=== PATIENT | male | born 1930 | race Caucasian/White ===

== ENCOUNTER 2017-02-03 00:43 | Inpatient (IN) | payer MEDICARE, OTHER ==
[~2017-02-03] VITALS: Ht 167.6 cm; Wt 56.3 kg
--- NOTE | ~2017-02-03 | ECH ---
Transthoracic Echocardiography Report (TTE) Demographics Patient Name SEVERIANO LAFLEUR Date of Study 02/06/2017 Patient Number [id number] Visit Number [id number] Date of 1930 Room Number 401 Accession Number [id number] Gender Male Age 86 year(s) Referring Dejon NOVOA Chemical Dependency Attendant Sheila Koehler Physician Woody Lindsey MD Physician Interpreting Dejon NOVOA Hand Binder Stripper Physician Woody Supervising Ordering Physician Dejon NOVOA MD/RANDEE Mckay Nurse Stress Process Checker Conclusions Contractility Score Summary Normal Left Ventricular contractility was noted. Summary Technically good exam. The estimated left ventricular ejection fraction is 50%. Mild concentric left ventricular hypertrophy. Diastolic assessment reveals Grade I diastolic dysfunction. Patient has a known VSD. There appears to be a moderate perimembranous ventricular septal defect. Moderately dilated right ventricle with normal function. The left atrium is severely dilated by LA volume index measurement. The right atrium is severely dilated. The interatrial septum appears aneurysmal. Patient has known PFO. There is evidence of a patent foramen ovale by color Doppler. There is mild aortic stenosis by the Continuity Equation. The peak velocity is 2.7 m/s, the mean gradient is 18 mmHg, and the valve area based on the continuity equation is 0.8 cm2, stroke volume index is 31 ml/m2. Peak velocity obtained in apical view. There is trivial aortic regurgitation by color Doppler. Moderate tricuspid regurgitation by color Doppler. There is moderate pulmonary hypertension. The pulmonary pressure (RVSP) is 53 mmHg. Recommendation The patient will be given the results of this study by the physician who ordered the exam. Procedure Type of Study TTE procedure:Echo Complete SF. Procedure Date Date: 02/06/2017 Start: 03:24 PM Technical Quality: Good visualization Indications:Pre surgical clearance, Shortness of breath and Diabetes. Additional Indications:Patient has known VSD, PFO Appropriate Use Criteria: 9 Height: 66 inches Weight: 119 pounds BSA: 1.6 m Rhythm: Within normal limits HR: 61 bpm BP: 112/66 mmHg M-Mode/2D Measurements LV Diastolic Dimension: 3.99 cm LV Systolic Dimension: 3.15 cm LV Septum Diastolic: 1.07 cm LV PW Diastolic: 1.08 cm AO Root Dimension: 2.69 cm Cardiac Output: 3.02 l/min LA Dimension: 4.27 cm Cardiac Index: 1.89 l/min*m RV Diastolic Dimension: 4.11 cm LA volume index: 59 ml/m LVOT: 2.06 cm LVOT VTI: 14.88 cm RV Base: 4.5 cm LV Stroke volume: 49.57 ml RV Mid: 3.7 cm LV Stroke volume index: 30.98 ml/m TAPSE: 2.8 cm TDI-S': 14 cm/s Doppler Measurements AV Peak Velocity: 2.7 m/s MV Peak E-Wave: 1.06 m/s AV Peak Gradient: 29.16 mmHg MV Peak A-Wave: 1.59 m/s AV Mean Gradient: 17.52 mmHg MV E/A Ratio: 0.66 LVOT Peak Velocity: 0.61 m/s MV P1/2t: 81.7 msec AV Area (Continuity):0.82 cm AV P1/2t: 430.2 msec TR Velocity:3.54 m/s MV Deceleration Time: 269.4 msec TR Gradient:50.13 mmHg MV Area (PHT): 2.69 cm Estimated RAP:3 mmHg PV Peak Velocity: 0.85 m/s Estimated RVSP: 53 mmHg PV Peak Gradient: 2.86 mmHg E' Septal Velocity: 0.05 m/s Estimated PASP: 53.13 mmHg E' Lateral Velocity: 0.05 m/s A' Septal Velocity: 0.11 m/s A' Lateral Velocity: 0.16 m/s RA Area: 27.23 cm Findings Left Ventricle The left ventricle is normal in size . Mild concentric left ventricular hypertrophy. Diastolic assessment reveals Grade I diastolic dysfunction. Patient has a known VSD. There appears to be a moderate perimembranous ventricular septal defect. Right Ventricle Moderately dilated right ventricle with normal function. Left Atrium The left atrium is severely dilated by LA volume index measurement. The interatrial septum appears aneurysmal. Patient has known PFO. There is evidence of a patent foramen ovale by color Doppler. Right Atrium The right atrium is severely dilated. Mitral Valve Moderate mitral annular calcification. Mild mitral regurgitation by color Doppler. Aortic Valve There is mild aortic stenosis by the Continuity Equation. The peak velocity is 2.7 m/s, the mean gradient is 18 mmHg, and the valve area based on the continuity equation is 0.8 cm2, stroke volume index is 31 ml/m2. Peak velocity obtained in apical view. There is trivial aortic regurgitation by color Doppler. Tricuspid Valve Normal tricuspid valve structure and function. Moderate tricuspid regurgitation by color Doppler. There is moderate pulmonary hypertension. The pulmonary pressure (RVSP) is 53 mmHg. Pulmonic Valve Normal pulmonic valve structure and function. Pericardial Effusion No evidence of pericardial effusion. Miscellaneous Visualized portions of the aortic root and ascending aorta appear normal in size. Pleural Effusion No evidence of pleural effusion. Contractility Score LV regional wall motion:(0-Non visualized 1-Normal 2-Hypokinesis 3-Akinesis 4-Dyskinesis 5-Aneurysm) Signature
--- NOTE | 2017-02-03 05:04 | ER ---
ADMIT: 02/03/2017 RM/LOC: [facility] MR#: [id number] [address] [address] SEVERIANO LAFLEUR [facility] [place] [address] Emergency Room Report SEX: M AGE: 86 : 1930 DATE: 02/03/2017 CHIEF COMPLAINT: Fall. HISTORY OF PRESENT ILLNESS: The patient is an 86-year-old, new resident of [facility] past 3 weeks from the [facility] transferred down to be closer to family. Carries diagnosis of frequent falls due to spinal stenosis and lumbar myelopathy. Has been evaluated by Spine surgeon and nothing could be done. The patient had another fall tonight resulting no significant injury, however, at [facility], there has been too many falls for the past 3 weeks and will not take him back. PAST MEDICAL HISTORY: ALLERGIES: SULFA, PENICILLIN, AND MUSHROOMS. 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 OPERATIONS: Appendectomy, bilateral hernia repair, bilateral cataract with intraocular lens implant, T and A. SOCIAL HISTORY: . Retired. Nonsmoker. Nondrinker. No illicit drugs. FAMILY HISTORY: Negative per chart review. REVIEW OF SYSTEMS: A 12-point review of systems negative for all other systems, illnesses, or operations except as outlined above. PHYSICAL EXAMINATION: VITAL SIGNS: Temp 96.8, respirations 16, pulse 88, BP 121/67, and SaO2 of 95%. Weight 54 kilos. GENERAL: Nontoxic, non-diaphoretic without jaundice or icterus. HEENT: Normocephalic. No evidence of epistaxis, rhinorrhea, or otorrhea. NECK: Supple without lymphadenopathy or thyromegaly. CHEST: Clear. Breath sounds equal without rales, rhonchi, or wheeze. HEART: Regular rate and rhythm without murmur, gallop, or edema. ABDOMEN: Soft, nontender, nondistended without mass or megaly. Bowel sounds hypoactive. EXTREMITIES: No evidence of Homans sign, synovitis, or dermatitis though weak. NEURO: EOMI. PERRL. Weak lower extremities. Gait not assessed. MEDICAL DECISION MAKING: CT head negative. Chest x-ray, no acute findings. EKG showed sinus rhythm with PVCs, right bundle, and left anterior hemiblock. ADMIT: 02/03/2017 RM/LOC: [facility] MR#: [id number] [address] [address] [place] [address] Emergency Room Report SEX: M AGE: 86 : 1930 LABORATORY DATA: Hemoglobin 11.9. CRP 1.05. Glucose 135, sodium 130. INR 1.0. Troponin 0.020. UA pending. Discussed findings with Dr. Escalera, who agreed and gave orders to nursing staff. DIAGNOSIS: Frequent falls due to spinal stenosis and associated lumbar myelopathy. RECOMMENDATION: Admit inpatient Med/Surg for Dr. Ibarra. ADMISSION/DISCHARGE CONDITION: Stable. Saul Dumont MD/ modl JOB #: [id number] CC: Saul Dumont MD, Attending Physician Max Ibarra MD, Family Physician Max Ibarra MD
--- NOTE | 2017-02-04 00:22 | NUR ---
UPIN 2ND ASESSMENT NURSE NOTICED PT WAS DIFICULT TO AROUSE, DIAPHORETIC, AND HOT TO TOUGH, PRN BLLOD GLUCOSE WAS TAKEN ANS RESULTED @ 68, HYPOGLYCEMIC PROTOCOL INITIATED
--- NOTE | 2017-02-06 07:19 | CO ---
ADMIT: 02/03/2017 RM/LOC: 401 [facility] MR#: [id number] [address] [address] [place] [address] Consultation SEX: M AGE: 86 : 1930 DATE OF CONSULTATION: 02/05/2017 ATTENDING PHYSICIAN: Pavan Ibarra CONSULTING PHYSICIAN: Juan Gay MD REASON FOR CONSULTATION: Weakness and falls. HISTORY OF PRESENT ILLNESS: Mr. Lafleur is a very pleasant 86-year-old gentleman, who hails from [facility] in [facility], near [place] old stom[place], who has had weakness and difficulty walking. Apparently, he has moved to try to be closer to family, although was little confusing when I was discussing with him his living situation, I think this gotten progressively worse. He had apparently had an MRI up in [place] with [place] folks and he says something about possible aortic aneurysm or other such blood vessel dilatation, and he did not seem certain on what the diagnosis was. He said there is also a talk about doing a surgery on his back. PAST MEDICAL HISTORY: 1. Diabetes mellitus type 2. 2. Stroke. 3. BPH. 4. Depression. 5. Anxiety. PAST SURGICAL HISTORY: 1. Appendectomy. 2. Herniorrhaphy. 3. Cataracts. 4. Adenoidectomy. 5. Tonsillectomy. SOCIAL HISTORY: Occasionally drinks alcohol. Prior smoker. Resides in assisted living. FAMILY HISTORY: No history of neurosurgical disease. PHYSICAL EXAMINATION: VITAL SIGNS: 97.2 degrees, 64 beats, 22 respirations, 112/62, 95% on room air. GENERAL: He is an otherwise healthy, age-appropriate appearing 86-year-old gentleman. HEENT: Atraumatic head. No scleral icterus. Clear oropharynx. CHEST: Normal respiratory excursion. ABDOMEN: Nontender. EXTREMITIES: Small wound on the right aspect of his ankle and some skin thinning and mild atrophy. NEUROLOGICAL EXAMINATION: MENTAL STATUS: He is awake, alert, and seems to be ADMIT: 02/03/2017 RM/LOC: 401 [facility] MR#: [id number] [address] [address] SEVERIANO LAFLEUR [place] [address] Consultation SEX: M AGE: 86 : 1930 oriented but during conversation, he also appears to be somewhat disoriented at times. After lengthy discussion, he is certainly well-versed on [employer] history. CRANIAL NERVES: Cranial nerves II through XII are individually tested and found to be intact without deficit. MOTOR: Motor exam reveals 5/5 strength in the upper extremities, 4/5 in the bilateral lower extremities with a little bit of difficulty in mobilization. DEEP TENDON REFLEXES: Are 1/4 in lower extremities, 2/4 in the upper extremities. CEREBELLAR: No cerebellar signs. GAIT: Not tested. SENSATION: Appears to be intact to light touch. ASSESSMENT AND PLAN: Mr. Lafleur is a very pleasant 86-year-old gentleman who certainly by the reports sounds like he has severe stenosis of the lumbar spine that sounds like it is going to be operative, although I have not seen the imaging and I would not want to base my entire consideration on the report alone. I am going to need to see this imaging, hopefully they can either overnight a disk or electronically push through the imaging to better evaluate. We will plan to check in with him tomorrow. Also, I will order flexion extension films. I am uncertain as to whether he has become acutely worse; if that is the case, then a new MRI would certainly be an order but based on what I have seen, it sounds like this is subacute chronic process that is going on. Juan Gay MD/ nabila JOB #: [id number] CC: Pavan Ibarra, Attending Physician Max Ibarra, Family Physician
--- NOTE | 2017-02-06 08:09 | HP ---
ADMIT: 02/03/2017 RM/LOC: 401 [facility] MR#: [id number] 26[address] [facility] [address] [place] [phone] NATHANSEVERIANO [place] [facility] [address] History and Physical SEX: M AGE: 86 : 1930 DATE OF SERVICE: CHIEF COMPLAINT: Weakness and falls. HISTORY OF PRESENT ILLNESS: The patient is a pleasant 86-year-old male, who resides at an assisted living facility, [facility]. He just recently moved there over the past month or so to be closer to family. However, over the past 2 weeks, he has had progressive weakness and he has also had worsening numbness and tingling. He also has had multiple falls over the past few weeks. He says that prior to two weeks ago, he was able to use his walker. Now it is even difficult to just use his wheelchair. He also has pain across the lower back and has numbness and tingling in his lower extremities. He states he has spinal stenosis and has been battling with that for many years. Due to increasing falls, assisted living will not take him back as they do not feel he is suitable for assisted living at this time. Talking to him this morning, feels overall okay. He denies any chest pain, shortness of breath, or coughing. Denies any heart palpitations. Denies nausea, vomiting, or diarrhea. He does have urinary frequency, but states that is because of his BPH. He does have this numbness and tingling in his lower extremities bilaterally. PAST MEDICAL HISTORY: Significant for spinal stenosis, diabetes type 2, history of CVA without residual effects, BPH, depression, and anxiety. SOCIAL HISTORY: Former smoker. Drinks alcohol minimally. No drugs. Again, resides in assisted living. Just, recently moved here from the [facility]. FAMILY HISTORY: Noncontributory. PAST SURGICAL HISTORY: Include appendectomy, bilateral hernia repair, cataracts, tonsillectomy, and adenoidectomy. LAB WORK: In the ER showed a slightly low sodium at 130, potassium is normal at 3.8, chloride 96, CO2 is 26, BUN is 13, creatinine was 0.7, slightly elevated glucose of 135, and calcium is 9, alkaline phosphatase is elevated at 253, albumin is low at 2.9, total protein of 5.8, CRP was slightly elevated at 1.05, troponin was normal. CK was normal. MB was slightly elevated at 4.3, lactic acid is normal at 1.3. CBC, white blood cell count was 7.8, hemoglobin was 11.9, and platelets of 278. UA was normal. Chest x-ray showed some cardiomegaly. Also mentions a right lower lobe nodule, although we do not have any studies to compare this to, whether this is a new nodule, if it has changed. Head CT shows mild small vessel changes or ischemic changes. Otherwise, no acute abnormalities like bleeding or mass. PHYSICAL EXAMINATION: VITAL SIGNS: At the time of admission, temperature 97.1, 76 for pulse, 16 respiratory rate, blood pressure is 120/76, and he is a 100% on room air. GENERAL: No acute distress. He is alert and oriented x3. Very pleasant. ADMIT: 02/03/2017 RM/LOC: 401 [facility] MR#: [id number] [facility] [address] [address] [place] [id number] History and Physical SEX: M AGE: 86 : 1930 HEENT: Normocephalic and atraumatic. Extraocular muscles are intact. Moist mucous membranes. NECK: Supple and nontender. HEART: Regular rate and rhythm. He does have 3/6 holosystolic murmur, which the patient states he has had for as long as he can remember. LUNGS: Clear to auscultation bilaterally. No wheezing. ABDOMEN: Soft, positive bowel sounds, nontender. EXTREMITIES: Show no signs of edema, 2+ pulses. He does have hammertoes bilaterally and he does have a small scab on his right big toe. It does not appear to be infected. NEURO: Cranial nerves II through XII are grossly intact. He does have some decreased sensation in his feet. ASSESSMENT AND PLAN: 1. Spinal stenosis. 2. Weakness. 3. Neuropathy. 4. Deconditioning. 5. Diabetes. 6. Hyponatremia. 7. Depression and anxiety. 8. History of CVA (cerebrovascular accident). 9. Benign prostatic hyperplasia. We will get the patient admitted to the hospital. We will continue his home medications. We will start him on gabapentin for this numbness and tingling and low back pain. We will get physical therapy and occupational therapy to see him to reassess his functional level is as far as placement. Also suggest to get try find some records of the patient to see if he does have a former chest x-ray to compare the lung nodule. At this time, we will keep working on strengthening and will get repeat labs in the morning. Elisabet Alston MD Resident / Yordy Escalera MD / nabila JOB #: [id number] CC: Max Ibarra, Attending Physician Max Ibarra, Family Physician
[2017-02-08] MEDS ORDERED: METOPROLOL TART25 MG PO (13:14)
[2017-02-08] MEDS ORDERED: MIRALAX PACKET17 GM PO (13:15)
--- NOTE | 2017-02-18 07:03 | CO ---
ADMIT: 02/03/2017 RM/LOC: 401 [facility] MR#: [id number] [address] [address] [place] [address] Consultation SEX: M AGE: 86 : 1930 DATE OF CONSULTATION: 02/06/2017 ATTENDING PHYSICIAN: Pavan Ibarra CONSULTING PHYSICIAN: Woody Ashford MD REASON FOR CONSULT: Preop for back surgery and chest pain. HISTORY OF PRESENT ILLNESS: The patient is seen in PCU today for severe back pain caused by spinal stenosis and lumbar myelopathy causing severe leg weakness and multiple falls. The surgeon would like to perform surgery for this once, but the patient's heart health needs to be looked into first. The patient does have a history of chest pain that he describes as sharp. He says the pain is usually mild and it occurs with exertion and it only last a couple of seconds. He denies associated symptoms of shortness of breath, nausea, lightheadedness, dizziness, tingling, or numbness in the extremities or diaphoresis. He does report shortness of breath with activity. He says the chest pain has been going on for years, but none of it has occurred recently. Prior cardiac history is negative for heart attacks, heart caths, and any stress test. He did have echocardiogram performed in January 2015 revealing an ejection fraction of 50%, a PFO and a ventricular septal defect, which were already known. He also had a carotid Doppler performed in January 2015 revealing mild to moderate left and right carotid artery atherosclerosis of less than 50%. Prior heart monitors do reveal the patient has episodes of unsustained ventricular tachycardia. He says he does feel palpitations and his heart pounding at times. He denies shortness of breath, fainting, lightheadedness, or dizziness at this time. The patient's cardiovascular risk factors include history of high blood pressure. Negative for smoking or tobacco use, high cholesterol or diabetes. PAST MEDICAL HISTORY: Significant illnesses: Diabetes type 2, history of stroke, BPH, spinal stenosis, depression, and anxiety. PREVIOUS SURGERIES: Appendectomy, bilateral hernia repair, cataracts bilaterally, tonsillectomy, and adenoidectomy. HOME MEDICATIONS: 1. Alprazolam 0.25 mg p.o. at bedtime. 2. Betamethasone dipropionate 0.05% cream. 3. Aspirin 81 mg p.o. daily. 4. Dipyridamole 100 mg p.o. 5. Lexapro 10 mg p.o. 6. Terazosin HCl 5 mg p.o. at bedtime. 7. AREDS one tab p.o. b.i.d. 8. MiraLAX powder 17 g p.o. daily. 9. Paxil 10 mg p.o. daily. 10.BuSpar 10 mg p.o. b.i.d. 11.Hydrocodone 5-325 mg p.o. every 4 hours p.r.n. 12.Milk of mag p.o. p.r.n. ADMIT: 02/03/2017 RM/LOC: 401 [facility] MR#: [id number] [address] [address] [place] [address] Consultation SEX: M AGE: 86 : 1930 13.Acetaminophen 325 mg 1-2 tabs p.o. p.r.n. ALLERGIES: SULFA, PENICILLIN, AND MUSHROOMS. SOCIAL HISTORY: No prior smoking, alcohol use, drug use, or abuse. Occupation, retired. Marital status, . REVIEW OF SYSTEMS: GENERAL: Denies fatigue, fever, chills, sweats, rash, or weight loss. EYES: Negative for blurry vision, glaucoma, partial or total loss of vision. Positive for cataracts. ENT: Denies hearing loss or problems with nose, mouth or throat. PULMONARY: Denies cough, sputum production, asthma, emphysema or bronchitis. Denies snoring loudly, wakefulness at night, or fatigue upon awakening. GASTROINTESTINAL: Denies heartburn or difficulty swallowing. No change in bowel habits. Denies dark or bloody stools. No history of ulcers, hiatal hernia, or gallbladder or liver disease. GENITOURINARY: Positive for BPH and troubles in urination. Negative for UTIs, blood in urine, kidney stones. MUSCULOSKELETAL: Positive for spinal stenosis and myelopathy. ENDOCRINE: Denies history of thyroid dysfunction or diabetes. HEMATOLOGIC: Denies history of anemia, easy bruising, or cancer. NEUROLOGIC: Positive for stroke, numbness, and tingling in the legs. Negative for seizure disorder. PSYCHIATRIC: Positive for depression and anxiety. PHYSICAL EXAMINATION: VITAL SIGNS: Temperature afebrile, pulse 85, respiratory rate 18, blood pressure 132/65, O2 saturation 91% on room air. GENERAL: No acute distress. Alert and oriented but difficult historian. HEENT: Normocephalic and atraumatic. NECK: JVD normal, no bruits. HEART: Irregular, 4/6 blowing holosystolic murmur. LUNGS: Clear to auscultation. ABDOMEN: Soft and nontender. EXTREMITIES: Absent edema. NEUROLOGIC: Cranial nerves II through XII intact. MUSCULOSKELETAL: Gait not assessed. LABORATORY DATA: Sodium 139, potassium 3.8, chloride 104, CO2 of 27, BUN 14, creatinine 0.8, and glucose 121. White blood cell count 8.4, red blood cell count 11.7, CK-MB 4.3, troponin 0.020. Chest x-ray, cardiomegaly, nodule ADMIT: 02/03/2017 RM/LOC: 401 [facility] MR#: [id number] [address] [address] [place] [address] Consultation SEX: M AGE: 86 : 1930 right lower lobe. Planning on doing CT for followup on nodule. EKG: Sinus rhythm with PVCs. ASSESSMENT: 1. Chest pain-no recent chest pain. He states it has been intermittent and has occurred for many years. No history of coronary artery disease. Plan to do echo and based on results may consider stress test. 2. Premature ventricular contractions-add beta-william. Check echo. 3. Spinal stenosis per neurosurgeon. 4. History of ventricular septal defect-check echo. 5. History of stroke and patent foramen ovale. 6. Dementia. KAREN Garcia Student / Woody Ashford MD / nabila JOB #: [id number] CC: Pavan Ibarra, Attending Physician Max Ibarra, Family Physician
--- NOTE | 2017-03-13 10:33 | DS ---
ADMIT: 02/03/2017 RM/LOC: [facility] MR#: [id number] [id number] [facility] [place] [place] [address] General Discharge Summary SEX: M AGE: 86 : 1930 ADMISSION DATE: 02/03/2017 DISCHARGE DATE: 02/07/2017 CONSULTS: Neurosurgery and Cardiology. FINAL DIAGNOSES: 1. Weakness secondary to spinal stenosis. 2. Severe spinal stenosis. 3. Neuropathy. 4. Diabetes type 2. 5. Depression. 6. Anxiety. 7. Benign prostatic hypertrophy. 8. Hyponatremia. PROCEDURES: No procedures were done during this hospitalization. HISTORY OF PRESENT ILLNESS: The patient had recently just moved here from the [facility]. The patient was residing at assisted living; however, last few days, the patient was having recurrent falls and weakness, so the patient was sent in to the ER for management. The patient was admitted for physical therapy evaluation as well as evaluation for possible infection. HOSPITAL COURSE: Spinal stenosis. The patient did have a fall while in the hospital. Head CT was negative for any acute processes. Neurosurgery was consulted to evaluate this patient's spinal stenosis. It was determined that it was fairly severe, and Neurosurgery thought that possible laminectomy could be done to help possibly improve some of his symptoms throughout the hospitalization; however, they decided not to do that at this time, but he is still considering it. The patient may have the procedure as an outpatient. Cardiology was consulted primarily for preop H and P clearance if he was to undergo the laminectomy during the hospitalization. He was cleared. The patient does have symptoms of hypoxia, requiring O2. The patient had a bilateral venous Doppler done that did not show any signs of lower extremity DVTs. He did have a liver ultrasound that showed some tiny cysts. This was done in relation to the chest CT that showed a possible lesion in the liver. Chest CT did not show any acute processes. It did show maybe some emphysema and subpleural nodularity in the right lung, but no real acute cause for the patient's symptoms. It was suggested that the patient has followup imaging. The patient was able to be weaned off the O2. There was also some concern throughout the hospitalization for his acute mental status. Some medication changes were made appropriately to help with this as well. PT and OT evaluated the patient and determined that the patient needed to go to a higher level of care. The patient was discharged to [facility]. MEDICATIONS AT TIME OF DISCHARGE: Include: 1. Baby aspirin. 2. BuSpar 10 mg b.i.d. 3. Hytrin 5 mg capsule at night. ADMIT: 02/03/2017 RM/LOC: 401 [facility] MR#: [id number] [id number] [place] [address] General Discharge Summary SEX: M AGE: 86 : 1930 4. Lexapro 10 mg daily. 5. Lopressor 25 mg b.i.d. 6. MiraLAX daily. 7. Neurontin 100 mg at night. 8. Persantine DPS 50 mg tablet a.c. at bedtime. 9. Multivitamin. 10.PreserVision. 11.Xanax 0.25 mg at night. 12.DuoNeb as needed. The patient does have followup with Neurosurgery and Cardiology to both monitor the blood pressure and heart rate. It was suggested for the senior living facility. The patient was sent out on a prednisone taper and Prevacid. Code status is DNR/DNI. He is to follow up in 1 week with PCP. Elisabet Alston MD Resident / Pavan Ibarra MD / nabila JOB #: [id number] CC: Pavan Ibarra MD, Attending Physician Max Ibarra MD, Family Physician
[2017-04-28] MEDS ORDERED: PROVENTIL2.5 MG/3 M IH (18:59)
[2017-04-28] MEDS ORDERED: ASA CHILDREN'S81 MG PO (18:59)
[2017-04-28] MEDS ORDERED: BUSPAR DPS10 MG PO (19:00)
[2017-04-28] MEDS ORDERED: HYDROCODON-ACE1 EAC4 PO (19:00)
[2017-04-28] MEDS ORDERED: DUONEB DPS3 ML IH (19:00)
[2017-04-28] MEDS ORDERED: PROTOPIC TP (19:01)
[2017-04-28] MEDS ORDERED: NITROSTAT0.4 MG SL (19:01)
[2017-04-28] MEDS ORDERED: [UNRECOGNIZED DRUG - OTHER] PO (19:01)
[2017-04-28] MEDS ORDERED: PRESERVISION A1 EAC1 PO (19:01)
[2017-04-28] MEDS ORDERED: DIPYRIDAMOLE PO (19:01)
[2017-04-28] MEDS ORDERED: NEURONTIN DPS100 MG PO (19:01)
[2017-04-28] MEDS ORDERED: KLOR-CON M2020 ME1 PO (19:01)
[2017-04-28] MEDS ORDERED: LEXAPRO DPS10 MG PO (19:01)
[2017-04-28] MEDS ORDERED: XANAX DPS0.25 MG PO (19:02)
[2017-04-28] MEDS ORDERED: KENALOG OINT. 015 GM TP (19:02)
[2017-04-28] MEDS ORDERED: TYLENOL DPS325 MG PO (19:02)
[2017-04-28] MEDS ORDERED: HYTRIN5 MG PO (19:02)
[2017-04-28] MEDS ORDERED: BETAMETHASONE D45 G1 TP (19:03)
[2017-04-28] MEDS ORDERED: QUESTRAN DPS4 GM PO (19:04)
[2017-04-28] MEDS ORDERED: OMNICEF DPS300 MG PO (19:04)
[2017-04-28] MEDS ORDERED: MYCOSTATIN PWD15 GM TP (19:05)
[2017-04-28] MEDS ORDERED: VANCOMYCIN500 MG/20 PO (19:05)
[2017-04-28] MEDS ORDERED: ZITHROMAX500 MG PO (19:05)
[2017-04-28] MEDS ORDERED: PEPCID DPS20 MG PO (19:05)
== END 2017-02-07 14:20 | DRG 552 ==
LOC: ER 00:43 → 4PCU 03:04
PROVIDERS: ADMIT Family Medicine
DX: M48.06 Spinal stenosis, lumbar region (principal); E11.42 Type 2 diabetes mellitus with diabetic polyneuropathy; F03.90 Unspecified dementia, unspecified severity, without behavioral disturbance, psychotic disturbance, mood disturbance, and anxiety; E87.1 Hypo-osmolality and hyponatremia; Q21.1 Atrial septal defect; R07.9 Chest pain, unspecified; I45.10 Unspecified right bundle-branch block; N40.0 Benign prostatic hyperplasia without lower urinary tract symptoms; F32.9 Major depressive disorder, single episode, unspecified; I49.3 Ventricular premature depolarization; I65.23 Occlusion and stenosis of bilateral carotid arteries; F41.9 Anxiety disorder, unspecified; R29.6 Repeated falls; Z86.73 Personal history of transient ischemic attack (TIA), and cerebral infarction without residual deficits; Z87.891 Personal history of nicotine dependence; Z79.82 Long term (current) use of aspirin; Z66 Do not resuscitate

== ENCOUNTER 2017-04-21 14:18 | Inpatient (IN) | payer MEDICARE, OTHER ==
[~2017-04-21 14:18] MED LIST: METOPROLOL TART25 MG PO; MIRALAX PACKET17 GM PO
[2017-04-28] MEDS ORDERED: PROVENTIL2.5 MG/3 M IH (18:59)
[2017-04-28] MEDS ORDERED: ASA CHILDREN'S81 MG PO (18:59)
[2017-04-28] MEDS ORDERED: DUONEB DPS3 ML IH (19:00)
[2017-04-28] MEDS ORDERED: HYDROCODON-ACE1 EAC4 PO (19:00)
[2017-04-28] MEDS ORDERED: BUSPAR DPS10 MG PO (19:00)
[2017-04-28] MEDS ORDERED: NITROSTAT0.4 MG SL (19:01)
[2017-04-28] MEDS ORDERED: DIPYRIDAMOLE PO (19:01)
[2017-04-28] MEDS ORDERED: LEXAPRO DPS10 MG PO (19:01)
[2017-04-28] MEDS ORDERED: KLOR-CON M2020 ME1 PO (19:01)
[2017-04-28] MEDS ORDERED: [UNRECOGNIZED DRUG - OTHER] PO (19:01)
[2017-04-28] MEDS ORDERED: PROTOPIC TP (19:01)
[2017-04-28] MEDS ORDERED: PRESERVISION A1 EAC1 PO (19:01)
[2017-04-28] MEDS ORDERED: NEURONTIN DPS100 MG PO (19:01)
[2017-04-28] MEDS ORDERED: HYTRIN5 MG PO (19:02)
[2017-04-28] MEDS ORDERED: XANAX DPS0.25 MG PO (19:02)
[2017-04-28] MEDS ORDERED: KENALOG OINT. 015 GM TP (19:02)
[2017-04-28] MEDS ORDERED: TYLENOL DPS325 MG PO (19:02)
[2017-04-28] MEDS ORDERED: BETAMETHASONE D45 G1 TP (19:03)
[2017-04-28] MEDS ORDERED: OMNICEF DPS300 MG PO (19:04)
[2017-04-28] MEDS ORDERED: QUESTRAN DPS4 GM PO (19:04)
[2017-04-28] MEDS ORDERED: MYCOSTATIN PWD15 GM TP (19:05)
[2017-04-28] MEDS ORDERED: VANCOMYCIN500 MG/20 PO (19:05)
[2017-04-28] MEDS ORDERED: ZITHROMAX500 MG PO (19:05)
[2017-04-28] MEDS ORDERED: PEPCID DPS20 MG PO (19:05)
== END 2017-04-26 13:40 | DRG 193 ==
DX: J18.9 Pneumonia, unspecified organism (principal); E43 Unspecified severe protein-calorie malnutrition; L89.152 Pressure ulcer of sacral region, stage 2; A04.7 Enterocolitis due to Clostridium difficile; L89.620 Pressure ulcer of left heel, unstageable; L89.511 Pressure ulcer of right ankle, stage 1; E86.9 Volume depletion, unspecified; Z68.1 Body mass index [BMI] 19.9 or less, adult; Q21.1 Atrial septal defect; Q21.0 Ventricular septal defect; E11.9 Type 2 diabetes mellitus without complications; I65.29 Occlusion and stenosis of unspecified carotid artery; I49.3 Ventricular premature depolarization; I49.1 Atrial premature depolarization; M48.06 Spinal stenosis, lumbar region; R91.1 Solitary pulmonary nodule; L40.9 Psoriasis, unspecified; F41.9 Anxiety disorder, unspecified; F32.9 Major depressive disorder, single episode, unspecified; H35.30 Unspecified macular degeneration; N40.0 Benign prostatic hyperplasia without lower urinary tract symptoms; Z86.73 Personal history of transient ischemic attack (TIA), and cerebral infarction without residual deficits; Z79.82 Long term (current) use of aspirin; Z87.891 Personal history of nicotine dependence; Z66 Do not resuscitate